=== PATIENT | female | born 1965 | race African-American/Black ===

== ENCOUNTER 2020-11-13 08:05 | Inpatient (IN) | payer SELFPAY ==
[~2020-11-13] VITALS: Ht 160 cm; Wt 103.9 kg
[2020-11-13] MEDS ORDERED: MORPHINE SULFATE 4 MG/ML CPJ (NOT FOR IM USE) IV STA (08:55)
[2020-11-13] MEDS ORDERED: FAMOTIDINE 20MG/2ML VIAL IV STA (08:55)
[2020-11-13] MEDS ORDERED: LABETALOL 5MG/ML SYR 20 MG/4 ML SYRINGE IV ONE (09:00)
[2020-11-13] MEDS ORDERED: ENALAPRIL 2.5MG/2ML VIAL 2ML IV ONE (10:00)
[2020-11-13] MEDS ORDERED: MORPHINE SULFATE 4 MG/ML CPJ (NOT FOR IM USE) IV ONE ×2 (10:00→13:15)
[2020-11-13] MEDS ORDERED: HYDRALAZINE 20MG/ML VIAL IV ONE (10:00)
[2020-11-13] MEDS ORDERED: ENALAPRIL 1.25MG/ML VIAL 1ML IV SCH (10:15)
[2020-11-13 10:31] LABS: BASOPHILS % 0.5 % (0.0-2.0); HEMATOCRIT. 48.5 % (36.0-48.0); HEMOGLOBIN. 16.6 g/dL (12.0-16.0); LYMPHOCYTES % 11.1 % (20.0-50.0); MEAN CORPUSCULAR HEMOGLOBIN 28.5 pg (28.0-32.0); MEAN PLATELET VOLUME 10.3 fl (7.4-10.4); MONOCYTES % 3.7 % (2.0-8.0); NEUTROPHILS % 84.7 % (40.0-76.0); PLATELET 201 x1000/uL (130-400); RED BLOOD CELL COUNT 5.85 mill/uL (4.2-5.4); RED CELL DISTRIBUTION WIDTH 16.1 % (11.6-14.6)
[2020-11-13 10:41] LABS: CHLORIDE 105 mEq/L (98-107); PROTHROMBIN TIME 11.1 sec (9.6-11.0)
[2020-11-13] MEDS ORDERED: NITROGLYCERIN OINT 1GM/INCH UDPKT TD NR (11:45)
[2020-11-13] MEDS ORDERED: HYDRALAZINE 20MG/ML VIAL IV NR (11:45)
[2020-11-13] MEDS ORDERED: FUROSEMIDE 100MG/10ML VIAL IVP NR (11:45)
[2020-11-13] MEDS ORDERED: IOHEXOL-350 100 ML BOTTLE ONE (14:49)
[2020-11-13] MEDS ORDERED: CLONIDINE 0.1MG TABLET PO PRN (15:30)
[2020-11-13] MEDS ORDERED: ACETAMINOPHEN 325MG TABLET PO PRN (15:30)
[2020-11-13] MEDS ORDERED: IPRATROPIUM/ALBUTEROL 0.5-3(2.5)MG/3ML NEB HHN PRN (15:30)
[2020-11-13] MEDS ORDERED: NICARDIPINE 40MG/200ML PREMIX 200 ML IV PRN (16:00)
[2020-11-13] MEDS: PANTOPRAZOLE SODIUM 40 MG/VIAL IV SCH (17:00)
[2020-11-13] MEDS ORDERED: AZITHROMYCIN 500 MG in DEXT 5% WATER 250 ML IV SCH (17:30)
[2020-11-13] MEDS: ATORVASTATIN CALCIUM 10MG TABLET PO SCH (21:41)
[2020-11-13] MEDS: ENOXAPARIN 30MG/0.3ML SYR SUBCUT SCH (21:46)
[2020-11-14] VITALS (52 sets, daily range): BP systolic 104–183; BP diastolic 26–99
[2020-11-14] MEDS: ONDANSETRON HCL 4MG/2ML INJ IV PRN ×2 (00:18→16:15)
[2020-11-14] MEDS: HYDRALAZINE 20MG/ML VIAL IV PRN ×2 (00:28→10:21)
[2020-11-14] MEDS: MORPHINE SULFATE 2 MG/ML CPJ (NOT FOR IM USE) IV PRN ×3 (01:16→09:21)
[2020-11-14] MEDS: NICARDIPINE 50 MG in SODIUM CHLORIDE 0.9% 250 ML IV PRN ×4 (04:59→16:39)
[2020-11-14] MEDS ORDERED: DEXTROSE 50% WATER 50ML SYRINGE IV PRN (05:30)
[2020-11-14 05:59] LABS: BASOPHILS % 0.2 % (0.0-2.0); CHLORIDE 105 mEq/L (98-107); HEMATOCRIT. 45.8 % (36.0-48.0); HEMOGLOBIN. 15.5 g/dL (12.0-16.0); LYMPHOCYTES % 15.4 % (20.0-50.0); MEAN CORPUSCULAR HEMOGLOBIN 27.6 pg (28.0-32.0); MEAN CORPUSCULAR VOLUME 81.6 fL (81.0-99.0); MONOCYTES % 6.4 % (2.0-8.0); RED BLOOD CELL COUNT 5.62 mill/uL (4.2-5.4); RED CELL DISTRIBUTION WIDTH 16.4 % (11.6-14.6)
[2020-11-14 06:10] LABS: HDL CHOLESTEROL 71 mg/dL (40-59); LDL CHOLESTEROL 91 mg/dL (5-100)
[2020-11-14] MEDS: ENOXAPARIN 30MG/0.3ML SYR SUBCUT SCH ×2 (06:11→17:04)
[2020-11-14] MEDS: BLOOD SUGAR DIAGNOSTIC STRIP TEST SCH ×4 (06:23→21:00)
[2020-11-14] MEDS: PANTOPRAZOLE SODIUM 40 MG/VIAL IV SCH (08:33)
[2020-11-14 10:23] LABS: PLATELET 198 x1000/uL (130-400)
[2020-11-14] MEDS: DIPHENHYDRAMINE 50MG/ML VIAL IV PRN ×2 (10:42→22:49)
[2020-11-14] MEDS: AMLODIPINE 5MG TABLET PO SCH ×2 (11:57→21:59)
[2020-11-14] MEDS: LOSARTAN POTASSIUM 50 MG TABLET PO SCH ×2 (11:57→16:38)
[2020-11-14] MEDS ORDERED: MORPHINE SULFATE 2 MG/ML CPJ (NOT FOR IM USE) IV SCH (12:00)
[2020-11-14] MEDS ORDERED: POTASSIUM CHLORIDE INJ 40 MEQ in DEXT 5% WATER 250 ML IV SCH (13:00)
[2020-11-14] MEDS: AZITHROMYCIN 500 MG in DEXT 5% WATER 250 ML IV SCH (13:03)
[2020-11-14] MEDS ORDERED: MORPHINE SULFATE 2 MG/ML CPJ (NOT FOR IM USE) IV PRN (13:15)
[2020-11-14] MEDS ORDERED: POTASSIUM CHLORIDE 20MEQ TABLET SR PO SCH (14:00)
[2020-11-14] MEDS: TRIAMTERENE/HYDROCHLOROTHIAZID 75/50MG TABLET PO SCH (14:56)
[2020-11-14] MEDS ORDERED: HYDROMORPHONE HCL/PF 2MG/ML CPJ IV NR (20:00)
[2020-11-14] MEDS ORDERED: KETOROLAC 15MG/ML VIAL IV NR (20:00)
[2020-11-14] MEDS ORDERED: HYDROMORPHONE HCL/PF 2MG/ML CPJ IV PRN (20:15)
[2020-11-14] MEDS: ATORVASTATIN CALCIUM 10MG TABLET PO SCH (21:59)
[2020-11-15] VITALS (37 sets, daily range): BP systolic 99–181; BP diastolic 48–117
[2020-11-15] MEDS: HYDROMORPHONE HCL/PF 2MG/ML CPJ IV PRN ×5 (00:15→20:10)
[2020-11-15 05:35] LABS: BASOPHILS % 0.5 % (0.0-2.0); EOSINOPHILS % 0.1 % (0.0-5.0); HEMATOCRIT. 43.7 % (36.0-48.0); HEMOGLOBIN. 14.9 g/dL (12.0-16.0); LYMPHOCYTES % 31.8 % (20.0-50.0); MEAN CORPUSCULAR HEMOGLOBIN 28.1 pg (28.0-32.0); MEAN CORPUSCULAR VOLUME 82.3 fL (81.0-99.0); MEAN PLATELET VOLUME 10.1 fl (7.4-10.4); MONOCYTES % 7.8 % (2.0-8.0); NEUTROPHILS % 59.8 % (40.0-76.0); PLATELET 176 x1000/uL (130-400); RED BLOOD CELL COUNT 5.31 mill/uL (4.2-5.4); RED CELL DISTRIBUTION WIDTH 16.5 % (11.6-14.6)
[2020-11-15 05:43] LABS: CHLORIDE 107 mEq/L (98-107)
[2020-11-15] MEDS: ENOXAPARIN 30MG/0.3ML SYR SUBCUT SCH ×2 (05:58→18:00)
[2020-11-15] MEDS: DIPHENHYDRAMINE 50MG/ML VIAL IV PRN ×3 (05:58→14:32)
[2020-11-15] MEDS: BLOOD SUGAR DIAGNOSTIC STRIP TEST SCH ×4 (08:21→21:00)
[2020-11-15] MEDS: PANTOPRAZOLE SODIUM 40 MG/VIAL IV SCH (08:34)
[2020-11-15] MEDS: TRIAMTERENE/HYDROCHLOROTHIAZID 75/50MG TABLET PO SCH (08:35)
[2020-11-15] MEDS: AMLODIPINE 5MG TABLET PO SCH ×2 (08:35→21:49)
[2020-11-15] MEDS: LOSARTAN POTASSIUM 50 MG TABLET PO SCH ×2 (08:35→17:51)
[2020-11-15] MEDS: HYDRALAZINE HCL 25MG TABLET PO SCH ×2 (13:14→21:49)
[2020-11-15] MEDS: AZITHROMYCIN 500 MG in DEXT 5% WATER 250 ML IV SCH (13:14)
[2020-11-15] MEDS: ATORVASTATIN CALCIUM 10MG TABLET PO SCH (21:48)
[2020-11-16] VITALS (7 sets, daily range): BP systolic 108–136; BP diastolic 57–84
[2020-11-16] MEDS: BLOOD SUGAR DIAGNOSTIC STRIP TEST SCH ×3 (05:56→17:19)
[2020-11-16] MEDS: HYDRALAZINE HCL 25MG TABLET PO SCH ×2 (06:12→14:45)
[2020-11-16] MEDS: ENOXAPARIN 30MG/0.3ML SYR SUBCUT SCH ×2 (06:12→18:00)
[2020-11-16] MEDS: HYDROMORPHONE HCL/PF 2MG/ML CPJ IV PRN ×3 (06:30→19:31)
[2020-11-16 06:43] LABS: BASOPHILS % 0.6 % (0.0-2.0); EOSINOPHILS % 0.6 % (0.0-5.0); HEMOGLOBIN. 16.5 g/dL (12.0-16.0); LYMPHOCYTES % 36.9 % (20.0-50.0); MEAN CORPUSCULAR HEMOGLOBIN 28.6 pg (28.0-32.0); MEAN CORPUSCULAR VOLUME 81.7 fL (81.0-99.0); MEAN PLATELET VOLUME 10.5 fl (7.4-10.4); MONOCYTES % 10.7 % (2.0-8.0); NEUTROPHILS % 51.2 % (40.0-76.0); PLATELET 181 x1000/uL (130-400); RED BLOOD CELL COUNT 5.75 mill/uL (4.2-5.4); RED CELL DISTRIBUTION WIDTH 16.2 % (11.6-14.6)
[2020-11-16 06:45] LABS: CHLORIDE 105 mEq/L (98-107)
[2020-11-16] MEDS: PANTOPRAZOLE SODIUM 40 MG/VIAL IV SCH (10:03)
[2020-11-16] MEDS: LOSARTAN POTASSIUM 50 MG TABLET PO SCH ×2 (10:03→17:19)
[2020-11-16] MEDS: AMLODIPINE 5MG TABLET PO SCH (10:04)
[2020-11-16] MEDS: TRIAMTERENE/HYDROCHLOROTHIAZID 75/50MG TABLET PO SCH (10:04)
[2020-11-16] MEDS ORDERED: HYDR-4134 PO (11:52)
[2020-11-16] MEDS ORDERED: ATOR40TA70 MT (11:52)
[2020-11-16] MEDS ORDERED: PANT40TA51 MT (11:52)
[2020-11-16] MEDS ORDERED: MAX PO (11:52)
[2020-11-16] MEDS ORDERED: AMLO10TA80 MT (11:52)
[2020-11-16] MEDS ORDERED: LOSA100T32 MT (11:52)
[2020-11-16] MEDS ORDERED: AZITHROMYCIN 500 MG TABLET PO SCH (12:00)
[2020-11-16] MEDS: DIPHENHYDRAMINE 50MG/ML VIAL IV PRN (12:44)
[2020-11-16] MEDS ORDERED: AZIT500T8 MT (17:57)
[2020-11-17] MEDS ORDERED: FAMOTIDINE 20MG TABLET PO SCH (09:00)
[2020-11-17] MEDS ORDERED: GABA-290 MT (10:23)
== END 2020-11-16 21:10 | disposition home or self-care (01) | DRG 720 ==
LOC: ER 08:05 → MICUSO 14:42 → EDBEDREQSVC 17:09 → EDBEDREQTM 19:36 → EDBEDREQSVC 11-14 01:30 → EDBEDREQDT 11-14 01:30 → EDBEDREQTM 11-14 01:30 → CVICU 11-14 02:03 → 8WST 11-15 17:06
PROVIDERS: ADMIT Internal Medicine; ATTEND Internal Medicine
DX: A41.9 Sepsis, unspecified organism (principal); J15.9 Unspecified bacterial pneumonia; B49 Unspecified mycosis; E66.01 Morbid (severe) obesity due to excess calories; K76.0 Fatty (change of) liver, not elsewhere classified; D71 Functional disorders of polymorphonuclear neutrophils; Z68.41 Body mass index [BMI] 40.0-44.9, adult; E78.5 Hyperlipidemia, unspecified; F17.210 Nicotine dependence, cigarettes, uncomplicated; G89.29 Other chronic pain; I16.1 Hypertensive emergency; I10 Essential (primary) hypertension; R73.9 Hyperglycemia, unspecified; R10.9 Unspecified abdominal pain; D25.9 Leiomyoma of uterus, unspecified; R63.4 Abnormal weight loss; Z91.14 Patient's other noncompliance with medication regimen; Z91.19 Patient's noncompliance with other medical treatment and regimen; Z98.51 Tubal ligation status; Z79.899 Other long term (current) drug therapy
CPT/HCPCS: 36415; 71045; 71275; 74174; 76705; 80048; 80053; 80061; 82962; 83036; 83735; 83880; 84443; 84484; 85025; 93005; 93306; 93970; 99285; C9113; J0360; J0456; J1170; J1200; J1650; J1885; J1940; J2270; J2405; J3480; J3490; J7040; J7050; J7060; Q9967